=== PATIENT | female | born 1995 | race Caucasian/White ===

== ENCOUNTER → 2024-06-17 06:31 | Day surgery (SDC) | payer BC, SELFPAY ==
[2024-06-04 10:57] LABS: % Basophils 0.6 % (0-2); % Eosinophils 2.1 % (0-6); % Immature Granulocytes 0.3 % (0-0.5); % Lymphocytes 35.6 % (20.5-51.1); % Neutrophils 53.4 % (42.2-75.2); Absolute Eosinophils 0.1 10^3/uL (0-0.7); Absolute Lymphocytes 2.4 10^3/uL (1.2-3.4); Absolute Monocytes 0.5 10^3/uL (0.1-0.6); Absolute Neutrophils 3.6 10^3/uL (1.4-6.5); Hematocrit 40.8 % (37.0-47.0); Hemoglobin 13.8 g/dL (12.0-16.0); Mean Corp Hgb Conc. 33.8 g/dL (33.0-37.0); Mean Corpuscular Hgb 29.7 pg (27.0-31.0); Mean Corpuscular Volume 87.7 fL (81.0-99.0); Mean Platelet Volume 10.7 fL (7.4-10.4); Nucleated Red Blood Cells % 0 %; Platelet Count 220 10^3/uL (130-400); Red Blood Cell Count 4.65 10^6/uL (4.20-5.40); Red Cell Dist. Width 12.8 % (11.5-14.5); White Blood Cell Count 6.8 10^3/uL (4.8-10.8)
[2024-06-04 11:50] LABS: ALT (SGPT) 12 U/L (0-35); AST (SGOT) 24 U/L (14-36); Albumin 4.6 g/dl (3.5-5.0); Alkaline Phosphatase 58 U/L (38-126); Blood Urea Nitrogen 12 mg/dl (7-17); Calcium 9.2 mg/dl (8.4-10.2); Carbon Dioxide 27 mmol/L (22-30); Chloride 103 mmol/L (98-107); Glucose 72 mg/dl (70-99); Potassium 4.3 mmol/L (3.5-5.1); Sodium 140 mmol/L (135-145); Total Bilirubin 0.3 mg/dl (0.2-1.3); Total Protein 7.1 g/dl (6.3-8.2); eGFR > 60.00
[2024-06-04 14:24] VITALS: BMI 26.8
--- NOTE | 2024-06-16 17:31 | W.CON.GYNONC ---
Chief Complaint
-
pelvic mass
History of Present Illness
28�year�old G0 white female presents for evaluation of pelvic mass. Patient has been experiencing frequent episodes of urination,
she has had extreme pain during her menstrual cycles also describes experiencing excessive amount of flatus and gassy
sensation. Prior examinations by her bun icer have been normal. She does have a history of polycystic ovarian disease. She
saw attention from bun icer at [facility]. Was told that she may have uterine fibroids. Ultrasound was ordered
Ultrasound of pelvis performed at [facility] dated May 05, 2024 shows uterus anteverted measuring 6.6 cm, endometrial
echo is 8 mm. Right ovary is 5.2 x 3.2 x 1.6 cm containing a 3 cm complex cystic and solid mass. Left ovary is 8.4 x 10.6 x 8.1 cm
containing a 7.5 x 9.9 mm complex cystic mass with nodular solid�appearing papillary projections. Small amount of free fluid is
present. Images of this study are not available for my review today
Menarche was at age 11, she has had oligomenorrhea, she has intentionally lost 40 pounds and her menstrual cycles are actually
better.
Past medical history significant for hypothyroidism, polycystic ovarian disease and anxiety
Past surgical history none
Social history patient was a smoker for about 10 years quit 6 years ago, alcohol use socially, denies use of drugs but does use
recreational marijuana occasionally,
Family history significant for maternal grandfather with stomach cancer and liver metastasis and a maternal grandmother with
thyroid cancer
Patient�returns�back�to�the�office�for�follow�up�visit�Having�completed�having�completed�blood�work�as�well�as�imaging�studies.�[facility]�8.2�x�10.0�x�9.9�cm,�there�is�solid�component,�the�wall�is�smooth,�there�is�some
papillary�projections�within�it�there�is�enhancement�equal�to�outer�myometrium�with�high�risk�TIC�and�there�is�no�lipid�or�fat
components�present.�Left�ovary�is�normal�in�size�and�morphology�there�is�a�lesion�that�2.4�x�1.8�cm�without�solid�component
described�as�a�hemorrhagic�cyst�remainder�of�the�organs�including�bladder�pelvic�cavity�bowels�vessels�pelvic�sidewall�and�bones are�unremarkable
CT�of�chest�abdomen�and�pelvis�was�done�with�IV�contrast,�the�study�redemonstrates�the�pelvic�mass�as�noted�above,�there�is
small�pelvic�ascites�there�is�cholelithiasis,�there�is�no�significant�findings�in�chest.�There�is�a�2�mm�nonobstructing�renal�calculus no�pneumoperitoneum�no�lymphadenopathy�no�peritoneal�nodules.
Allergies Penicillins
Medications
levothyroxine�88�mcg�tablet 05/12/2024 0 1�p.o.�q.�day
Lexapro�5�mg�tablet 05/12/2024 0 1�p.o.�q.�day
OTC�Allergy�med 05/12/2024 0 prn
trazodone�50�mg�tablet 05/12/2024 0 1�p.o.�q.�day
Vitamin�D 05/12/2024 0 1�p.o.�q.�day
Medical History
Allergies
Allergies reflect when allergies were last updated in [facility].
amoxicillin Allergy (Verified 06/10/24 14:22)
Severe Nausea / Vomiting
Physical Exam
Physical Exam
Physical Exam
Pelvic Examination:
External normal labia, urethra, anus.
Vagina: Normal mucosa.
Cervix: normal appearance, no discharge.
Uterus: normal size.
Adnexa: fullness appreciated as mass in left adnexa, 10 cm, mobile, organs are separable.
RVE: no masses or nodularity
General: Well developed, well nourished patient. In no acute distress.
Neck: No thyromegaly. No cervical lymphadenopathy.
Lungs: Clear to auscultation. Good air movement bilaterally.
Cardiac: Regular rate. Regular rhythm. No murmurs appreciated.
Right Breast: No masses or dimpling. No nipple discharge.
Left Breast: No masses or dimpling. No nipple discharge.
Екатерина Cedillo, 1995 Page 2 of 4
Abdomen: Abdomen is soft. Non�tender to palpation. Non�distended.
Extremities: No edema.
Hematologic/Lymphatic: No palpable lymphadenopathy.
Musculoskeletal: Normal range of motion. Strength and Tone are normal.
Skin:Non�jaundiced. No petechia. No purpura.
Neurologic: Speech is fluent. Normal gait and station. Cranial nerves intact.
Results
-
06/04/24 09:02
06/04/24 09:02
CBC With Differential/Platelet�-FinalOrdered by:�Sreedhar RASHEED
WBC 7.8 x10E3/uL 3.4-10.8 [facility]
RBC 4.90 x10E6/uL 3.77-5.28 [facility]
Hgb 14.4 g/dL 11.1-15.9 [facility]
HCT 44.6 % 34.0-46.6 [facility]
MCV 91 fL 79-97 [facility]
MCH 29.4 pg 26.6-33.0 [facility]
MCHC 32.3 g/dL 31.5-35.7 [facility]
RDW Ratio 12.1 % 11.7-15.4 [facility]
Plat 264 x10E3/uL 150-450 [facility]
Neut% 57 % Not Estab. [facility]
Lymph% 35 % Not Estab. [facility]
MONO% 6 % Not Estab. [facility]
EOS% 1 % Not Estab. [facility]
BASO% 1 % Not Estab. [facility]
ANC 4.4 x10E3/uL 1.4-7.0 [facility]
Lymph# 2.7 x10E3/uL 0.7-3.1 [facility]
MONO# 0.5 x10E3/uL 0.1-0.9 [facility]
EOS# 0.1 x10E3/uL 0.0-0.4 [facility]
BASO# 0.1 x10E3/uL 0.0-0.2 [facility]
Immature Granulocytes 0 % Not Estab. [facility]
Immature Grans (Abs) 0.0 x10E3/uL 0.0-0.1 [facility]
Comp. Metabolic Panel (14)�-FinalOrdered by:�Sreedhar RASHEED
Glucose 78 mg/dL 70-99 [facility]
BUN 9 mg/dL 6-20 [facility]
Creat 0.76 mg/dL 0.57-1.00 [facility]
eGFR 109 mL/min/1.73 >59 [facility]
BUN Creat Ratio 12 9-23 [facility]
Sodium 139 mmol/L 134-144 [facility]
Potassium 4.3 mmol/L 3.5-5.2 [facility]
Chloride 101 mmol/L 96-106 [facility]
CO2 21 mmol/L 20-29 [facility]
Calcium 9.8 mg/dL 8.7-10.2 [facility]
Total Protein 6.9 g/dL 6.0-8.5 [facility]
Albumin 4.5 g/dL 4.0-5.0 [facility]
Globulin 2.4 g/dL 1.5-4.5 [facility]
Total Bili 0.3 mg/dL 0.0-1.2 [facility]
Alk Phos 60 IU/L 44-121 [facility]
AST 16 IU/L 0-40 [facility]
ALT 8 IU/L 0-32 [facility]
Urinalysis, Routine�-FinalOrdered by:�Sreedhar RASHEED
Sp [place] 1.011 1.005-1.030 [facility]
ph 7.0 5.0-7.5 [facility]
Color Yellow Yellow [facility]
Appearance Clear Clear [facility]
WBC Esterase Negative Negative [facility]
Protein [Presence] Negative Negative/Trace [facility]
Glucose (urine) Negative Negative [facility]
Ketone Negative Negative [facility]
Blood Negative Negative [facility]
Bilirubin (UA) Negative Negative [facility]
Urobil 0.2Low mg/dL 0.2-1.0 [facility]
Nitrite Negative Negative [facility]
Microscopic Examination MICNIP [facility]
Microscopic�not�indicated�and�not�performed.
AFP, Tumor Marker (Serial)�-FinalOrdered by:�Sreedhar RASHEED
AFP Tumor Marker 6.3High ng/mL 0.0-4.7 [facility]�Electrochemiluminescence�Immunoassay�(ECLIA)
���������������������������������������������������������������������.
Values�obtained�with�different�assay�methods�or�kits�cannot�be
used�interchangeably.��Results�cannot�be�interpreted�as�absolute
evidence�of�the�presence�or�absence�of�malignant�disease.
���������������������������������������������������������������������.
This�test�is�not�interpretable�in��females.
PDF . [facility]
CA 125, Serum (Serial)�-FinalOrdered by:�Sreedhar RASHEED
CA125 18.5 U/mL 0.0-38.1 [facility]�Electrochemiluminescence�Immunoassay�(ECLIA)
���������������������������������������������������������������������.
Values�obtained�with�different�assay�methods�or�kits�cannot�be
used�interchangeably.��Results�cannot�be�interpreted�as�absolute
evidence�of�the�presence�or�absence�of�malignant�disease.
FSH and LH�-FinalOrdered by:�Sreedhar RASHEED
LH 8.3 mIU/mL [facility]
������������������������������������Adult�Female��������������Range
�������������������������������������Follicular�phase������2.4�-��12.6
�������������������������������������Ovulation�phase������14.0�-��95.6
�������������������������������������Luteal�phase����������1.0�-��11.4
�������������������������������������Postmenopausal��������7.7�-��58.5
FSH 7.7 mIU/mL [facility]
������������������������������������Adult�Female�������������Range
�������������������������������������Follicular�phase������3.5�-��12.5
�������������������������������������Ovulation�phase�������4.7�-��21.5
�������������������������������������Luteal�phase����������1.7�-���7.7
�������������������������������������Postmenopausal�������25.8�-�134.8
Testosterone, Free+Total LC/MS�-FinalOrdered by:�Sreedhar RASHEED
Testosterone, Total, LC/MS 25.9 ng/dL 10.0-55.0 [facility]
Free Testosterone(Direct) 2.2 pg/mL 0.0-4.2 [facility]
CEA�-FinalOrdered by:�Sreedhar RASHEED
CEA 1.0 ng/mL 0.0-4.7 [facility]
��������������������������������������������Nonsmokers����������<3.9
��������������������������������������������Smokers�������������<5.6
��������������������������������������������������������������������.
���������������[facility]�Electrochemiluminescence�Immunoassay
���������������(ECLIA)
��������������������������������������������������������������������.
���������������Values�obtained�with�different�assay�methods�or�kits
���������������cannot�be�used�interchangeably.��Results�cannot�be
���������������interpreted�as�absolute�evidence�of�the�presence�or
���������������absence�of�malignant�disease.
hCG,Beta Subunit, Qnt�-FinalOrdered by:�Sreedhar RASHEED
hCG,Beta Subunit,Qnt,Serum <1 mIU/mL [facility]
������������������������������������Female�(Non-)����0�-�����5
�������������������������������������������(Postmenopausal)��0�-�����8
���������������������������������������������������������������������.
������������������������������������Female�()
������������������������������������Weeks�of�Gestation
��������������������������������������������3����������������6�-����71
��������������������������������������������4���������������10�-���053
��������������������������������������������8��������������258�-��7783
��������������������������������������������3��������������359�-�92832
��������������������������������������������5�������������6955�-[id number]
��������������������������������������������7������������69291�-[id number]
��������������������������������������������4������������80008�-[id number]
�������������������������������������������91������������37101�-[id number]
�������������������������������������������29������������04565�-[id number]
�������������������������������������������98������������93982�-�79662
�������������������������������������������15������������24967�-�57819
�������������������������������������������71�������������9916�-�70959
�������������������������������������������67�������������1928�-�65407
�������������������������������������������18�������������8099�-�31565
[facility]ECLIA�methodology
TSH reflex to T4F�-FinalOrdered by:�Sreedhar RASHEED
TSH 2.220 uIU/mL 0.450-4.500 [facility]
LDH�-FinalOrdered by:�Sreedhar RASHEED
LDH 156 IU/L 119-226 [facility]
Urine Culture, Routine�-FinalOrdered by:�Sreedhar [facility] Source:�
Urine Culture, Routine Final report [facility]
Result�-FinalOrdered by:�Sreedhar RASHEED
Result 1 LESS
Impression / Plan
-
Impression
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
I am recommending surgery for management, I recommend robotic assisted resection of pelvic mass, I plan to remove the
hemorrhagic cyst from the contralateral ovary. I plan to preserve uterus and cervix as well as 1 tube and ovary. Most likely she will
undergo comprehensive staging procedures to include but not limited to omentectomy peritoneal biopsies washings as well as
pelvic and aortic lymph nodes as indicated. Risk of surgery including infection bleeding injury to adjacent organs DVT pulmonary
embolism and cardiovascular complications were discussed and reviewed
Surgery will be scheduled June 17 at [facility]. Consent was signed in the office today
[2024-06-17] VITALS (10 sets, daily range): BP systolic 103–127; BP diastolic 56–79; BMI 26.8
[2024-06-17] MEDS: NORMOSOL-R/PLASMALYTE-A 1000 IV (10:49)
[2024-06-17] MEDS: CELEBREX 200 MG PO (10:49)
[2024-06-17] MEDS: TYLENOL 1000 MG PO (10:49)
[2024-06-17] MEDS: NEURONTIN 300 MG PO (10:49)
[2024-06-17] MEDS: HEPARIN 5000 UNITS SC (11:15)
[2024-06-17] MEDS: SUBLIMAZE 50 MCG IV ×2 (15:43→15:55)
--- NOTE | 2024-06-17 17:17 | OR.RPT ---
Operative Report
Operative Report
Preoperative diagnosis: Right lower quadrant complex pelvic mass possibly left ovarian cyst
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
Procedure:
Robotic assisted exploratory laparoscopy, right salpingo-oophorectomy, left ovarian cystectomy/partial oophorectomy, pelvic washings
Robotic assisted laparoscopic infracolic omentectomy, multiple peritoneal biopsies
Robotic assisted laparoscopic appendectomy
Mini laparotomy for extraction of specimen
Dilation and curettage
TAP Block
Surgeon: Chalino Rees MD
Shipping And Receiving Coordinator: Jerry Robles PA-C
Estimated blood loss: 50 cc
Anesthesia General, endotracheal intubation
Complications: None
Specimens: Right tube and ovary, left ovarian cyst, pelvic washings, right and left pelvic peritoneum, right pericolonic/cecal adhesions, left paracolic gutter biopsy, omentum, appendix, endometrial curetting
Procedure in detail: This patient was brought to the operating room for conservative management and fertility sparing intent after recent identification of right lower quadrant mass concerning for neoplastic process the patient has had extensive
workup with normal tumor markers. She did not have any evidence of upper abdominal disease on imaging she was counseled about the extent of surgery today and wishes to retain her uterus and cervix and at least part of an ovary and fallopian tube.
Upon arrival to the operating room she was placed in supine position general anesthesia was administered she was intubated without any difficulty and she was placed in lithotomy position using yellowfin stirrups. Arms were wrapped with foam and
placed along the patient's side appropriate IVs were in place, head neck and shoulders were protected. Following this she was prepped on the abdomen perineum and vagina. The patient was draped and Amezquita catheter was inserted under sterile
conditions in the bladder. Timeout procedure was carried out she received 2 g of Ancef, and she had received DVT prophylaxis with heparin. Anterior lip of the cervix was grasped with single-tooth tenaculum, cervical canal was gradually dilated
until I could easily inserted 23 Hegar dilator. Next sharp curettage of the endometrium was performed and a sample was submitted to pathology. Uterine manipulator telecommunications network planner type with 3.0 cm NOEL ring was placed around the cervix for uterine
manipulation during surgery. Attention was turned abdominally Veress needle was inserted just below left subcostal margin. Insufflation with CO2 gas up to pressure of 15 mmHg was performed. 8 mm X Xi robotic port was inserted 25 cm cephalad to
symphysis pubis and under direct visualization additional 8 mm X Xi robotic ports were inserted right upper quadrant left upper quadrant right and left lateral abdomen. Survey of the upper abdomen does not reveal any evidence of abnormality
involving liver falciform ligament right and left diaphragms stomach omentum and spleen. Under direct visualization tap block was performed injecting combination of ropivacaine and Decadron 2 fingerbreadths laterally below the right and left
subcostal margins below the muscle and above the peritoneum. I made a 6 cm incision 2 fingerbreadths above symphysis pubis and opened the subcutaneous tissue fascia and using a Pfannenstiel technique the rectus muscles and eventually
opened the peritoneum I placed a small size retractor with In this location for extraction of specimens. Patient was placed in Trendelenburg at 28 degrees and pelvic organs were visualized a large 15 cm mass was arising from right ovary without any
significant adhesions to adjacent organs, left ovary contained a 2 cm cyst there were no implants on the pelvic peritoneum or paracolic gutters or omentum. Washings were collected for the cul-de-sac and submitted to pathology. Robotic system was
docked. I opened the peritoneum on the right pelvis and extended it into the paracolic gutter a loop of small bowel was adherent to the infundibulopelvic ligament and these adhesions were taken down sharply without use of electricity. I opened the
retroperitoneal space and visualized the course of the ureter. IP ligament was sealed 3 times and divided we detached the tube and ovary from the cornu of the uterus , this was accomplished by sealing fallopian tube as well as utero-ovarian
ligament. Following this a 12/15 cm endoscopic bag was inserted through the mini laparotomy and the specimen was placed within the bag the bag was brought out through the mini laparotomy incision the bag was punctured in order to decompress the
mass partially and then the entire mass was reviewed this was sent for frozen section which returned back as mucinous low malignant potential or borderline tumor eventually. Please note that the mass was ruptured within the bag and there was no
spillage of this mass in the abdominal cavity. Following this our attention was turned to the left ovary, at one of the poles of the ovary there appeared to be 2 cystic masses I opened the capsule of the ovary and was able to remove essentially 30%
of this ovary by removing this cysts the cysts were placed in a 5 mm bag 1 was removed through the mini laparotomy incision. Peritoneal biopsies were performed in right and left pelvis as well as right and left paracolic gutters along the right
paracolic gutters there were significant adhesions between the cecum and gutter and these adhesions were removed and submitted to pathology. Omentum was brought into the view, infracolic omentectomy was performed utilizing vessel sealer to seal
across blood vessels as well as portions of the omentum until the omentum was completely mobilized and the omentum was brought out through the laparotomy incision. Cecum was mobilized, mesoappendix was sealed and divided, JENNIFER 45 mm vascular stapler
was introduced through the mini laparotomy retractor And base of the appendix at the level of the cecum was stapled across securely and transected the appendix was removed through the mini laparotomy. I did not perform any retroperitoneal lymph
node dissection as she did not have any suspicious enlarged lymph nodes there was no diagnosis of invasive cancer and typically for this histology risk of retroperitoneal lymph node metastasis is close to 0. All operative sites were examined and
there was no evidence of bleeding we irrigated the pelvis copiously and proceeded to remove all instruments released the pneumoperitoneum and undocked the robotic system. The mini laparotomy incision retractor was removed the fascia was closed
using 0 STRATAFIX suture starting from both ends coming to the center and a second layer going back to the corners. A running suture of 3-0 Monocryl was used to close the subcutaneous tissue. I used 4-0 Monocryl to close the skin incisions in a
subcuticular fashion, uterine manipulator and Amezquita catheter was removed. Patient was placed back in supine position, she returned back to recovery room stable awake and extubated condition. Counts of laps instruments and needle was correct x 2.
I was present and scrubbed for entire procedure as dictated above
Disposition: To PACU, stable awake and extubated.
[2024-06-17] MEDS: MOTRIN 600 MG PO (17:28)
[2024-06-17] MEDS: TYLENOL 650 MG PO (17:28)
[2024-06-17] MEDS: ZOFRAN 4 MG IV (18:06)
--- NOTE | 2024-06-17 19:44 | PTCARENOTE ---
Pt ambulating around unit with partner. Attempting to void. Pt taking in PO food and fluids, nausea resolved. Bladder scanned at 1900 for 135ml. Pt continues to drink. Awaiting void. Pain controlled.
--- NOTE | 2024-06-17 20:03 | PTCARENOTE ---
brought back to PACU, pt unable to void, hand off to Rasheeda VARMA. Reaching out to Dr. Rees in regards to void. Pt comfortable, pt's partner at bedside. belongings with pt. Pt has snack and beverage.
--- NOTE | 2024-06-17 20:08 | SUR.PHASEII ---
Received pt back from same day. Unable to void. Bladder scanned at 7pm for 135ml of urine. Dr. Rees notified. Received an order for Lasix 10mg IV. Once pt voids able to go home. Pt updated. Will continue to monitor.
[2024-06-17] MEDS: LASIX 10 MG IV (20:30)
--- NOTE | 2024-06-17 21:09 | SUR.PHASEII ---
Dr. Rees, called over phone. Pt remains unable to void. Uncomfortable after, Lasix and increase pressure. Bladder scanned for [address]. Will place Martinez and do teaching and pt will be discharged home with martinez and go to office tomorrow to get cathered
removed. Pt updated. Office will call tomorrow with time on what time she should go to office.
--- NOTE | 2024-06-24 10:47 | W.IMMPOSTOP ---
Surgical Immed Post Op Note
-
Primary Surgeon: Chalino Rees
Assisting Surgeon: Jerry Robles PA-C
Pre-op Diagnosis: Right lower quadrant complex pelvic mass possibly left ovarian cyst
Post-op Diagnosis: right ovary with mucinous borderline tumor , staging pending final path
Procedure Performed:
Robotic assisted exploratory laparoscopy, right salpingo-oophorectomy, left ovarian cystectomy/partial oophorectomy, pelvic washings
Robotic assisted laparoscopic infracolic omentectomy, multiple peritoneal biopsies
Robotic assisted laparoscopic appendectomy
Mini laparotomy for extraction of specimen
Dilation and curettage
TAP Block
Anesthesia Type: General, endotracheal intubation
Specimen:
Right tube and ovary, left ovarian cyst, pelvic washings, right and left pelvic peritoneum, right pericolonic/cecal adhesions, left paracolic gutter biopsy, omentum, appendix, endometrial curetting
Cultures: None
Estimated Blood Loss: 50 cc
Complications: none
Findings: Survey of the upper abdomen does not reveal any evidence of abnormality involving liver falciform ligament right and left diaphragms stomach omentum and spleen. enlarged right ovary, smooth surface, no other abnormalities in pelvic
peritoneum
== END ==
LOC: SDS 06:31
PROVIDERS: ATTENDING PHYSICIAN Obstetrics & Gynecology Gynecologic Oncology; FAMILY PHYSICIAN Family Medicine
DX: D39.10 Neoplasm of uncertain behavior of unspecified ovary (principal); N83.02 Follicular cyst of left ovary; K38.8 Other specified diseases of appendix; R19.03 Right lower quadrant abdominal swelling, mass and lump; K66.0 Peritoneal adhesions (postprocedural) (postinfection)
CPT/HCPCS: 38572; 58661; 58120; 88304; 88305; 88307; 88332; 36415; 80053; 85025; 86850; 86900; 86901; 88112; 88331